=== PATIENT | male | born 1995 | race Caucasian/White ===

== ENCOUNTER → 2016-09-27 | Day surgery (SDC) | payer BC ==
[2016-09-23 15:42] VITALS: Ht 193 cm; Wt 104.5 kg
[~2016-09-27] VITALS: Ht 193 cm; Wt 104.5 kg
[~2016-09-27] MED LIST: ATROPINE SULFATE 0.1 MG/ML 5ML SYR IV PRN; BUPIVACAINE 0.5 % 5 MG/1 ML MPF 30ML VIAL ONE; CEFAZOLIN 1000MG/55 ML D5W IV SCH; CEFAZOLIN 2000 MG/60 ML D5W IV SCH; DEXAMETHASONE SOD INJ 4 MG/ML VIAL ONE; EpHEDrine SULFATE INJ 50 MG/ML AMP IV PRN; FENTANYL CITRATE INJ 50 MCG/1 ML 2 ML VIAL IV PRN; FENTANYL CITRATE INJ 50 MCG/1 ML 2 ML VIAL ONE; FLUMAZENIL 0.1 MG/1 ML 10 ML VIAL IV ONE; FLUO20CA36 PO; HYDR-5688 PO; LACTATED RINGER'S 1000ML 1,000 ML IV SCH; LIDOCAINE HCL 1% 20 ML VIAL ONE; LIDOCAINE HCL 2% 2 ML VIAL (20MG/ML) ONE; LIDOCAINE/EPINEPHRINE 1% INJ 50 ML VIAL ONE; MIDAZOLAM HCL 1 MG/ML 2ML VIAL ONE; ONDANSETRON INJ 2 MG/ML 2 ML VIAL IV PRN; ONDANSETRON INJ 2 MG/ML 2 ML VIAL ONE; OXYCODONE/ACETAMINOPHEN 5-325 TAB PO PRN; PATIENT'S HEIGHT AND/OR WEIGHT NEEDED SCH; PROPOFOL IV EMULSION 10 MG/ML 20 ML VIAL IV ONE; SODIUM CHLORIDE 0.9% 1000ML 1,000 ML IV SCH
--- NOTE | 2016-09-27 06:44 | History & Physical Bridge - [place] ---
H&P Re-Evaluation Bridge Note: I have examined the patient, reviewed the History & Physical and in the interval since the performance of the History & Physical I have noted the following changes of clinical significance: No changes noted
--- NOTE | 2016-09-27 07:45 | [facility] Post Operative Brief Note ---
Immediate Operative Summary Operative Date Sep 27, 2016. Pre-Operative Diagnosis Left Knee Prepatella Bursitis, Scar Tissue Post-Operative Diagnosis same Procedure(s) Performed Left Knee Prepatellar Bursa Excision FIBROMA Surgeon Dr. Jannet Mederos [facility] Operating Room Nurse Surgeon(s) Jerrod Garcia PA-C Estimated Blood Loss 0 Specimens NONE Anesthesia LOCAL IV SEDATION Complication(s) None Disposition
[2016-09-27 07:48] VITALS: TEMP 36.9
--- NOTE | 2016-09-27 07:51 | Discharge Instructions-SurgCtr ---
Discharge Instructions Visit Reason for Visit: Left Knee Prepatellar Bursitis, Scar Tissue Discharge Discharge Diagnosis / Problem: SAME ABOVE Discharge Goals Goal(s): Decrease discomfort, Improve function Activity Recommendations Activity Limitations: as noted below Lifting Limitations: gradually increase as tolerated Exercise/Sports Limitations: until after follow-up appointment Shower/Bathe: may shower/bathe in 3 days Weightbearing Status: Left weightbearing (as tolerated) Anesthesia . Post Anesthesia Instructions: If you have had General Anesthesia or IV Sedation: * Do not drive today. * Resume driving when surgeon permits. * Do not make important decisions or sign legal documents today. * Call surgeon for: 1. Temperature elevations greater than 101 degrees F. 2. Uncontrollable pain. 3. Excessive bleeding. 4. Persistent nausea and vomiting. 5. Medication intolerance (nausea, vomiting or rash). * For nausea and vomiting use only clear liquids such as: tea, soda, bouillon until nausea subsides, then gradually increase diet as tolerated. * If you have any concerns or questions, call your surgeon's office. If physician is unavailable and it is an emergency, call 911 or go to the nearest emergency room. . Instructions / Follow-Up Instructions / Follow-Up MEDICATIONS: * Resume previous medications unless instructed otherwise by your surgeon. * Always take pain medication on a full stomach or with food to avoid upset stomach. * Do not drink alcohol or drive while taking narcotics. * Ibuprofen or Tylenol may be taken if narcotic not needed. SPECIAL CARE INSTRUCTIONS: __ None _X_ Keep extremity elevated and iced x 48 hours; apply ice 20-30 minutes 8-10 times/day. May remove at night. __ Crutches __ May discard when able __ Brace/Post-op shoe __ 24 hrs/day __ Remove at night _X_ Dressing __ Maintain until seen in office, may shower with plastic over site _X_ Remove dressings in 24-48 hours and then may shower _X_ Cover incisions with band-aids after showering __ Do not remove steri-strips Call physician if chills or temperature rises above 102 degrees or pain unrelieved by prescribed pain medications. Office [phone] Diet Recommendations Home Diet: resume previous diet Procedures Procedures Performed: Left Knee Prepatellar Bursa Excision FIBROMA Pending Studies Studies pending at discharge: no Medical Emergencies . Who to Call and When: Medical Emergencies: If at any time you feel your situation is an emergency, please call 911 immediately. . Non-Emergent Contact Non-Emergency issues call your: Primary Care Provider . . "Provider Documentation" section prepared by Jerrod Garcia.
--- NOTE | 2016-09-27 08:24 | OPERATIVE REPORT ---
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 POSTOPERATIVE DIAGNOSIS: Same. PROCEDURE: Excision of painful fibroma prepatellar bursa sac left knee. SURGEON: Dr. Mederos. GAS METER REPAIR SUPERVISOR: MATT Wiggins. ANESTHESIOLOGIST: Dr. Burks. ANESTHESIA: Local with IV sedation. DRAINS: None. COMPLICATIONS: None. CONDITION: The patient tolerated the procedure well and returned to the recovery room in apparent satisfactory condition. INDICATIONS FOR SURGERY: Derick is a 21-year-old male who has had a fibroma, in the anterior aspect of the prepatellar bursa sac of his left knee. It has been painful when he kneels down. We have injected it, treated it conservatively. It was elected to excise it. Procedure, expected outcomes, side effects were all explained in detail. DESCRIPTION OF PROCEDURE: The patient was taken to the OR at which time he was placed supine on the operating table and given IV sedation by the anesthesia department. The left leg was prepped and draped in the usual sterile fashion for surgery. I used 1% Xylocaine with epinephrine in the skin edges and once this gave us hemostasis, I went ahead and made a vertical incision over the prepatellar bursa. We dissected down and immediately we found some fluid filled sac with fibroma in it. It is probably about 2.5 x 2 cm in size. We incised it with cautery. We then used electrocautery to control any areas of bleeding. We copiously irrigated and closed the incision with interrupted 2-0 Vicryl suture and then with some skin tj. Dressing with Xeroform, 4 x 4, ABD, Sof-Rol, and Cornelio bandage and returned back to recovery room in apparent satisfactory condition. SURGICAL FINDINGS: Included fibroma 2 x 2.5 cm in size the prepatellar bursa, left knee. I attest to the content of the Intraoperative Record and any orders documented therein. Any exceptio ns are noted below.
--- NOTE | 2016-09-27 08:28 | Anesthesia Progress Nt - [facility] ---
Anesthesia Post Op Note Date & Time Sep 27, 2016 at 08:28 Vital Signs Pain Intensity: 0 Vital Signs Past 12 Hours Date Time Temp Pulse Resp B/P Pulse Ox O2 Delivery O2 Flow Rate FiO2 09/27/16 07:48 36.9 53 16 100/46 98 Room Air 09/27/16 06:37 36.6 65 16 135/84 96 Room Air Notes Mental Status: alert / awake / arousable, participated in evaluation Pt Amnestic to Procedure: Yes Nausea / Vomiting: adequately controlled Pain: adequately controlled Airway Patency, RR, SpO2: stable & adequate BP & HR: stable & adequate Hydration State: stable & adequate Anesthetic Complications: no major complications apparent
[2016-09-27 08:35] VITALS: BP 124/69; PULSE 59; O2SAT 98
== END | disposition home or self-care (01) ==
LOC: X.SURG 06:30
PROVIDERS: ATTEND Orthopaedic Surgery
DX: M70.52 Other bursitis of knee, left knee (principal); F41.9 Anxiety disorder, unspecified